=== PATIENT | male | born 1950 | race Caucasian/White ===

== ENCOUNTER 2019-07-06 05:03 | Inpatient (IN) ==
--- NOTE | 2019-06-28 11:20 | XRay Report ---
CLINICAL INFORMATION: Pre-Op COMPARISON: None FINDINGS: Heart size, mediastinum and pulmonary vessels are normal. There is a 2.2 cm calcified granuloma in the anterior segment left upper lobe and minimal scattered scarring in both mid and lower lungs. There are no infiltrates or effusions. Bones and soft tissues normal. IMPRESSION: 2.2 cm calcified granuloma left upper lobe. No acute disease Interpreted and Authenticated by: Maikel Dey 06/28/19
[2019-06-28 14:17] LABS: ALT/SGPT 13 U/l (0-40); AST/SGOT 15 U/l (0-37); Albumin 3.9 gm/dL (3.2-5.2); Albumin/Globulin Ratio 1.3 (1.0-2.3); Alkaline Phosphatase 61 U/L (39-117); Bilirubin,Total 0.3 mg/dL (0.0-1.0); Blood Urea Nitrogen 13 mg/dl (8-23); Carbon Dioxide 22 mmol/L (22-30); Chloride 104 mmol/L (96-108); Glomerular Filtration Rate 44; Glucose 99 mg/dL (70-105)
[2019-06-28 14:17] LABS: Basophils # (Auto) 0.12 K/mcL (0.00-0.30); Basophils % (Auto) 1.3 % (0.0-2.0); Eosinophils # (Auto) 0.25 K/mcL (0.00-0.70); Eosinophils % (Auto) 2.6 % (0.0-7.0); Granulocytes % (Auto) 57.3 % (38.0-78.0); Hematocrit 45.3 % (40.1-51.0); Hemoglobin 14.8 g/dL (13.7-17.5); Lymphocytes # (Auto) 3.12 K/mcL (1.50-4.80); Lymphocytes % (Auto) 32.8 % (15.5-49.0); Mean Cell Volume 96.6 fL (80.0-100.0); Mean Corpuscular HGB Conc 32.7 g/dL (31.0-36.0); Mean Platelet Volume 10.7 fL (7.4-10.4); Monocytes # (Auto) 0.57 K/mcL (0.10-0.90); Platelet Count 218 K/mcL (140-440); RBC 4.69 M/mcL (4.63-6.08); Red Cell Distribution Width 12.7 % (11.5-14.5); WBC 9.5 K/mcL (4.50-11.00)
[~2019-07-06 05:03] MED LIST: IPRATROPIUM/ALBUTEROL 3 ML AMPUL.NEB NEB PRN; SCOPOLAMINE 1 PATCH PATCH TOPICAL PRN
[2019-07-06] MEDS ORDERED: CEFEPIME 2 GM VIAL IV SCH ×2 (06:00→12:25)
[2019-07-06] MEDS ORDERED: VANCOMYCIN 2,000 MG in 0.9 % SODIUM CHLORIDE 500 ML IV SCH ×2 (06:00→12:25)
[2019-07-06 06:33] LABS: INR 0.9 (0.9-1.1)
[2019-07-06] MEDS ORDERED: MIDAZOLAM 2 MG/2 ML VIAL IV ONE (07:36)
[2019-07-06] MEDS ORDERED: ROCURONIUM 10 MG/ML ML IV ONE (07:36)
[2019-07-06] MEDS ORDERED: ONDANSETRON 4 MG/2 ML VIAL IV ONE (07:36)
[2019-07-06] MEDS ORDERED: DEXAMETHASONE 10 MG/ML VIAL IV ONE (07:36)
[2019-07-06] MEDS ORDERED: SUGAMMADEX SODIUM 200 MG/2 ML VIAL IV ONE (07:36)
[2019-07-06] MEDS ORDERED: KETAMINE 100 MG/ML ML IV ONE (07:36)
[2019-07-06] MEDS ORDERED: GLYCOPYRROLATE 0.2 MG/ML VIAL IV ONE (07:36)
[2019-07-06] MEDS ORDERED: PROPOFOL 200 MG/20 ML VIAL IV ONE (07:36)
[2019-07-06] MEDS ORDERED: fentaNYL 100 MCG/2 ML VIAL IV ONE (07:36)
[2019-07-06] MEDS ORDERED: LIDOCAINE HCL/PF 100 MG/5 ML SYRINGE IV ONE (07:36)
[2019-07-06] MEDS ORDERED: ROPIVACAINE HCL/PF 30 ML VIAL IJ ONE (07:36)
[2019-07-06] MEDS ORDERED: BACITRACIN 50,000 UNIT VIAL IR ONE (08:34)
[2019-07-06] MEDS ORDERED: ONDANSETRON 4 MG/2 ML VIAL IV PRN ×3 (09:24→12:25)
[2019-07-06] MEDS ORDERED: ACETAMINOPHEN 1,000 MG/100 ML BOTTLE IV ONE (09:24)
[2019-07-06] MEDS ORDERED: MEPERIDINE 25 MG/ML SYRINGE IV PRN ×3 (09:24→12:25)
[2019-07-06] MEDS ORDERED: KETOROLAC 15 MG/ML VIAL IV PRN ×3 (09:24→12:25)
[2019-07-06] MEDS ORDERED: fentaNYL 100 MCG/2 ML VIAL IV PRN ×3 (09:24→12:25)
[2019-07-06] MEDS ORDERED: IPRATROPIUM/ALBUTEROL 3 ML AMPUL.NEB NEB PRN ×3 (09:24→12:25)
[2019-07-06] MEDS ORDERED: LACTATED RINGERS 1,000 ML IV SCH ×3 (09:30→12:25)
--- NOTE | 2019-07-06 11:27 | Brief Operative Note ---
Date of procedure: 07/06/19 Pre-op diagnosis: LEFT SPIGELIAN HERNIA Post-op diagnosis: other (RECURRENT INCISIONAL HERNIA ;SP MESH GRAFT REPAIR) Procedure: REPAIR OF RECURRENT INCISIONAL HERNIA WITH MESH Grafts/Implants: No (MESH GRAFT) Anesthesia: GETA Findings: HERNIA RECURRENCE DUE TO SEPARATION OF MESH AT LEFT LATERAL AND INFERIOR MARGINS Complications: none Surgeon: Mayte Guerra Estimated blood loss (cc): 50 Specimens Removed/Pathology: none sent Condition: stable Disposition: PACU
[2019-07-06] MEDS ORDERED: ONDANSETRON 4 MG ODT TABLET SL PRN (12:25)
[2019-07-06] MEDS: HYDROmorphone 1 MG/ML SYRINGE IV PRN ×3 (13:01→21:34)
[2019-07-06] MEDS: 0.9 % SODIUM CHLORIDE 1,000 ML IV SCH (13:01)
[2019-07-06] MEDS ORDERED: VANCOMYCIN PER PHARMACY IV SCH (13:30)
[2019-07-06] MEDS: IPRATROPIUM/ALBUTEROL 3 ML AMPUL.NEB NEB SCH ×2 (13:34→19:22)
[2019-07-06] MEDS: CEFEPIME 2 GM VIAL IV SCH ×2 (14:48→21:33)
[2019-07-06] MEDS: 0.9 % SODIUM CHLORIDE 10 ML SYRINGE IV SCH ×2 (14:48→21:23)
[2019-07-06] MEDS ORDERED: VANCOMYCIN 1,500 MG in 0.9 % SODIUM CHLORIDE 500 ML IV SCH (21:00)
[2019-07-06] MEDS: GABAPENTIN 300 MG CAPSULE PO SCH (21:21)
[2019-07-06] MEDS: risperiDONE 1 MG TABLET PO SCH (21:21)
[2019-07-06] MEDS: buPROPion 100 MG TAB.SR.12H PO SCH (21:21)
[2019-07-06] MEDS: VANCOMYCIN 1,500 MG in 0.9 % SODIUM CHLORIDE 500 ML IV SCH (21:35)
[2019-07-07] MEDS: IPRATROPIUM/ALBUTEROL 3 ML AMPUL.NEB NEB SCH ×4 (00:51→19:02)
[2019-07-07] MEDS: HYDROmorphone 1 MG/ML SYRINGE IV PRN ×4 (03:58→21:10)
[2019-07-07] MEDS: CEFEPIME 2 GM VIAL IV SCH ×3 (05:49→22:27)
[2019-07-07] MEDS: 0.9 % SODIUM CHLORIDE 10 ML SYRINGE IV SCH ×3 (05:49→20:58)
[2019-07-07] MEDS: buPROPion 100 MG TAB.SR.12H PO SCH ×2 (08:22→20:58)
[2019-07-07] MEDS: GABAPENTIN 300 MG CAPSULE PO SCH ×2 (08:22→20:58)
[2019-07-07] MEDS: METOPROLOL SUCCINATE 50 MG TAB.XL.24H PO SCH (08:22)
[2019-07-07] MEDS: TAMSULOSIN 0.4 MG CAPSULE PO SCH (08:22)
[2019-07-07] MEDS: 0.9 % SODIUM CHLORIDE 1,000 ML IV SCH (09:35)
[2019-07-07 10:41] LABS: POC Blood Urea Nitrogen 18 mg/dl (8-23); POC CO2 26 mmol/L (22-30); POC Calcium, Ionized 1.08 mmol/L (1.16-1.32); POC Chloride 102 mmol/L (96-108); POC Creatinine 1.7 mg/dl (0.7-1.2); POC Glucose, Random 105 mg/dL (70-105); POC Potassium 4.3 mmol/L (3.3-5.1); POC Sodium 138 mmol/L (133-145)
[2019-07-07] MEDS: VANCOMYCIN 1,500 MG in 0.9 % SODIUM CHLORIDE 500 ML IV SCH ×2 (10:53→21:03)
--- NOTE | 2019-07-07 14:28 | Operative Note ---
DATE OF OPERATION: 07/06/2019 PREOPERATIVE DIAGNOSIS: Left spigelian hernia. POSTOPERATIVE DIAGNOSIS: Recurrent incisional hernia due to failed mesh repair. PROCEDURE: Repair of recurrent incisional hernia with mesh. SURGEON: Mayte Guerra M.D. FINDINGS: Hernia recurrence due to separation of mesh at left lateral margin and inferior margin at the level of the umbilicus. DESCRIPTION OF PROCEDURE: Under general anesthesia, the patient's abdomen was prepped and draped in a sterile field. Review of the CT of the hernia revealed that though it appeared to exit through the abdominal wall laterally along the lower semilunar line on the left, that the actual exit was more superior and more lateral. There was also herniation at the level of the umbilicus. It was, therefore, decided that the hernia would be assessed through a midline approach. A midline incision was made. In the subcutaneous tissue, there was scarring which suggested that he had had previous surgery. After I got through the subcutaneous tissue, I encountered a very large mesh that appeared to cover the entire anterior and lateral aspect of the peritoneum. Using blunt dissection, I was able to separate the thin fascia from the mesh circumferentially. On the left side, there was a total separation of the mesh, and there was herniation of bowel and mesentery and omentum into a fascial defect that tracked inferior and superiorly. This left a very large defect and hernia sac. I dissected until I could find the margin of the mesh, and then after the scar tissue was incised, the large defect was circumferentially dissected. The bowel was pulled from the large hernia sac and reduced back into the peritoneal cavity. The lower aspect of the mesh was inspected, and it had from its lower fascial margin. It was dissected along the entire inferior border until the attachments could be clearly identified. The mesh was then split along the lower one-fourth so that I could make sure that the suture that I was going to place to reattach it would not injure any bowel. There were two loops of bowel stuck to the mesh, and this was removed by sharp dissection and blunt dissection. Once the bowel was freed, I was then able to suture the mesh to the fascia and rectus muscle [id number] with the suture being tied after I was assured that the entire defect had been incorporated. No bowel was injured during this procedure. I then placed a drain in the large defect in the left lower quadrant. This was brought out inferiorly so that the drain would adequately decompress the entire defect. The muscle and fascia was then closed [id number] using #1 Prolene. This affected a good repair on that side. The mesh was then sutured to the muscle and fascia to secure it, taking care to visualize the entire undersurface of the mesh prior to tying the suture. Once this was completed, irrigation was carried out. Two drains were placed over the mesh and brought out through stab incisions in the right lower quadrant. The muscle and fascia were closed in the midline using running #1 Prolene. Irrigation was carried out with bacitracin solution, and the subcutaneous fat was closed with 2-0 Monocryl. Skin was closed with zoltan. The patient tolerated the procedure well. Dressings were placed, and the drains were secured with 2-0 nylon. He was awakened, transferred to the bed, and taken to the postanesthetic care unit in satisfactory condition. LCS:emerson Job ID: [id number] Doc ID: [id number] Mayte Guerra M.D.
--- NOTE | 2019-07-07 14:50 | General Surgery Progress Note ---
Subjective Patient reports: feels better, still having pain, pain is less, tolerating liquids well, flatus, no bowel movement, afebrile Narrative: Note initiated : 07/07/19 at 2:48 pm Service Date, if different from initiated Date: [] Patient: Michael Grant 68 y/o M admitted on 07/06/19 for Left Spigelian Hernia Repair. Chief Complaint: [patient states that he feels better. His abdominal pain is controlled. He denies nausea. He is tolerating liquids without difficulty. He has had some flatus but no bowel movement. RICHIE drains are putting out bloody drainage so far but small quantities. His incision is unremarkable.] Objective Temp Pulse Resp BP Pulse Ox 98.7 F 76 16 115/67 90 07/07/19 12:00 07/07/19 13:20 07/07/19 13:20 07/07/19 12:00 07/07/19 13:20 - Additional Data Intake & Output - Last 24 hours: Intake & Output 07/05/19 07/06/19 07/07/19 07/08/19 05:59 05:59 05:59 05:59 Intake Total 6320 1800 Output Total 4307 2600 Balance 2013 -800 Weight 289 lb 8 oz 296 lb 296 lb - General physical appearance well developed, well nourished, no distress - Eyes PERRL, normal ocular movement - ENT normal pinna, normal nares, normal mucosa, no hearing loss, no congestion - Neck no masses, no bruits, trachea midline, no lymphadenopathy, no venous distension - Respiratory normal expansion, normal respiratory effort, clear to auscultation - Cardiovascular Cardiovascular exam: Present: normal rate and rhythm, RRR, +S1, +S2. Absent: JVD, tachycardia - Abdomen non tender, tender (mild incisional tenderness), bowel sounds (present), surgical scars (none), masses (none) - Integumentary no rash, no growths, no abnormal pigmentation - Neurologic normal coordination, normal sensation - Musculoskeletal normal gait, normal posture - Psychiatric oriented to time, oriented to person, oriented to place, speech is normal, memory intact - Labs 06/28/19 10:54 06/28/19 10:53 Assessment and Plan (1) Recurrent incisional hernia Status: Acute Assessment and plan: Patient is stable. Will try to advance diet to full liquids Encourage improved ambulation with physical therapy Current Visit: Yes - Time Spent With Patient Total time spent is greater than 50% in coordination of care (as documented) at patient's floor/unit and/or counseling patient:
[2019-07-07] MEDS: risperiDONE 1 MG TABLET PO SCH (20:58)
[2019-07-07] MEDS: NICOTINE 21 MG PATCH TOPICAL SCH (21:04)
[2019-07-08] MEDS: HYDROmorphone 1 MG/ML SYRINGE IV PRN ×5 (00:34→22:15)
[2019-07-08] MEDS: IPRATROPIUM/ALBUTEROL 3 ML AMPUL.NEB NEB SCH ×4 (00:34→18:34)
[2019-07-08] MEDS: 0.9 % SODIUM CHLORIDE 10 ML SYRINGE IV SCH ×3 (04:15→20:47)
[2019-07-08] MEDS: CEFEPIME 2 GM VIAL IV SCH ×3 (05:59→22:16)
[2019-07-08] MEDS: METOPROLOL SUCCINATE 50 MG TAB.XL.24H PO SCH (08:59)
[2019-07-08] MEDS: GABAPENTIN 300 MG CAPSULE PO SCH ×2 (08:59→20:50)
[2019-07-08] MEDS: buPROPion 100 MG TAB.SR.12H PO SCH ×2 (08:59→20:50)
[2019-07-08] MEDS: TAMSULOSIN 0.4 MG CAPSULE PO SCH (08:59)
[2019-07-08 09:05] LABS: Basophils # (Auto) 0.09 K/mcL (0.00-0.30); Basophils % (Auto) 0.9 % (0.0-2.0); Eosinophils # (Auto) 0.33 K/mcL (0.00-0.70); Eosinophils % (Auto) 3.1 % (0.0-7.0); Hematocrit 43.3 % (40.1-51.0); Hemoglobin 13.9 g/dL (13.7-17.5); Lymphocytes # (Auto) 1.66 K/mcL (1.50-4.80); Lymphocytes % (Auto) 15.7 % (15.5-49.0); Mean Cell Volume 99.3 fL (80.0-100.0); Mean Corpuscular HGB Conc 32.1 g/dL (31.0-36.0); Mean Platelet Volume 10.5 fL (7.4-10.4); Monocytes # (Auto) 0.77 K/mcL (0.10-0.90); Monocytes % (Auto) 7.3 % (1.0-12.0); Platelet Count 202 K/mcL (140-440); RBC 4.36 M/mcL (4.63-6.08); Red Cell Distribution Width 12.8 % (11.5-14.5); WBC 10.6 K/mcL (4.50-11.00)
[2019-07-08 09:23] LABS: ALT/SGPT 13 U/l (0-40); AST/SGOT 14 U/l (0-37); Albumin 3.6 gm/dL (3.2-5.2); Albumin/Globulin Ratio 1.2 (1.0-2.3); Alkaline Phosphatase 55 U/L (39-117); Bilirubin,Direct 0.2 mg/dL (0.0-0.3); Bilirubin,Total 0.7 mg/dL (0.0-1.0); Blood Urea Nitrogen 12 mg/dl (8-23); Calcium 8.8 mg/dl (8.6-10.4); Carbon Dioxide 26 mmol/L (22-30); Chloride 103 mmol/L (96-108); Globulin 2.9 gm/dL (2.2-3.7); Glomerular Filtration Rate 52; Glucose 106 mg/dL (70-105); Lactate Dehydrogenase 204 U/L (94-250); Triglycerides 163 mg/dl (<150); Uric Acid 6.4 mg/dL (2.5-8.0)
[2019-07-08 09:24] LABS: Phosphorous 2.3 mg/dL (2.7-4.5)
--- NOTE | 2019-07-08 10:31 | General Surgery Progress Note ---
Subjective Patient reports: feels better, pain is less, tolerating liquids well, no flatus, no bowel movement, afebrile Narrative: Note initiated : 07/08/19 at 10:29 am Service Date, if different from initiated Date: [] Patient: Michael Grant 68 y/o M admitted on 07/06/19 for Left Spigelian Hernia Repair. Chief Complaint: [patient is stable. He is tolerating clear liquids and does not have nausea however he has had flatus . He is afebrile. He does have increased abdominal distention. White blood count 10.6, hemoglobin 13.9, hematocrit 30, creatinine 1.4 phosphorus 2.3] Objective Temp Pulse Resp BP Pulse Ox 97.7 F 100 H 18 128/79 94 07/08/19 07:40 07/08/19 07:40 07/08/19 07:40 07/08/19 07:40 07/08/19 07:40 - Additional Data Intake & Output - Last 24 hours: Intake & Output 07/06/19 07/07/19 07/08/19 07/09/19 05:59 05:59 05:59 05:59 Intake Total 6320 4150 Output Total 4307 56097 800 Balance 2013 -5955 -800 Weight 289 lb 8 oz 296 lb 301 lb 8 oz - General physical appearance well developed, well nourished, no distress, moderate pain - Eyes PERRL, normal ocular movement - ENT normal pinna, normal nares, normal mucosa, no hearing loss, no congestion - Neck no masses, no bruits, trachea midline, no lymphadenopathy, no venous distension - Respiratory normal expansion, normal respiratory effort, clear to auscultation - Cardiovascular Cardiovascular exam: Present: normal rate and rhythm, RRR, +S1, +S2. Absent: J VD, tachycardia - Abdomen distended (moderately distended but with good active bowel sounds; incision looks good; RICHIE drain with serosanguineous drainage) - Integumentary no rash, no growths, no abnormal pigmentation - Neurologic normal coordination, normal sensation - Musculoskeletal normal gait, normal posture - Psychiatric oriented to time, oriented to person, oriented to place, speech is normal, memory intact - Labs 07/08/19 08:09 07/08/19 08:09 Diabetes panel 07/08/19 Range/Units 08:09 Sodium 143 (133-145) mmol/L Potassium 4.3 (3.3-5.1) mmol/L Chloride 103 (96-108) mmol/L Carbon Dioxide 26 (22-30) mmol/L BUN 12 (8-23) mg/dl Creatinine 1.4 H (0.7-1.2) mg/dl Glucose 106 H (70-105) mg/dL Calcium 8.8 (8.6-10.4) mg/dl AST 14 (0-37) U/l ALT 13 (0-40) U/l Alkaline Phosphatase 55 (39-117) U/L Total Protein 6.5 (5.9-8.4) gm/dL Albumin 3.6 (3.2-5.2) gm/dL Triglycerides 163 H (<150) mg/dl Calcium panel 07/08/19 Range/Units 08:09 Calcium 8.8 (8.6-10.4) mg/dl Phosphorus 2.3 L (2.7-4.5) mg/dL Albumin 3.6 (3.2-5.2) gm/dL Pituitary panel 07/08/19 Range/Units 08:09 Sodium 143 (133-145) mmol/L Potassium 4.3 (3.3-5.1) mmol/L Chloride 103 (96-108) mmol/L Carbon Dioxide 26 (22-30) mmol/L BUN 12 (8-23) mg/dl Creatinine 1.4 H (0.7-1.2) mg/dl Glucose 106 H (70-105) mg/dL Calcium 8.8 (8.6-10.4) mg/dl Adrenal panel 07/08/19 Range/Units 08:09 Sodium 143 (133-145) mmol/L Potassium 4.3 (3.3-5.1) mmol/L Chloride 103 (96-108) mmol/L Carbon Dioxide 26 (22-30) mmol/L BUN 12 (8-23) mg/dl Creatinine 1.4 H (0.7-1.2) mg/dl Glucose 106 H (70-105) mg/dL Calcium 8.8 (8.6-10.4) mg/dl Total Bilirubin 0.7 (0.0-1.0) mg/dL AST 14 (0-37) U/l ALT 13 (0-40) U/l Alkaline Phosphatase 55 (39-117) U/L Total Protein 6.5 (5.9-8.4) gm/dL Albumin 3.6 (3.2-5.2) gm/dL Assessment and Plan (1) Recurrent incisional hernia Status: Acute Assessment and plan: Patient is stable. Will try to advance diet to full liquids Encourage improved ambulation with physical therapy Reglan 10 mg IV every 6 hours Abdominal x-rays in the morning Current Visit: Yes - Time Spent With Patient Total time spent is greater than 50% in coordination of care (as documented) at patient's floor/unit and/or counseling patient:
[2019-07-08] MEDS: NICOTINE 21 MG PATCH TOPICAL SCH (10:43)
[2019-07-08] MEDS: 0.9 % SODIUM CHLORIDE 1,000 ML IV SCH (11:23)
[2019-07-08] MEDS: METOCLOPRAMIDE 10 MG/2 ML VIAL IV SCH ×3 (11:27→23:22)
[2019-07-08] MEDS: VANCOMYCIN 1,500 MG in 0.9 % SODIUM CHLORIDE 500 ML IV SCH (14:05)
[2019-07-08] MEDS: risperiDONE 1 MG TABLET PO SCH (20:50)
[2019-07-09] MEDS: HYDROmorphone 1 MG/ML SYRINGE IV PRN ×3 (02:04→13:50)
[2019-07-09] MEDS: IPRATROPIUM/ALBUTEROL 3 ML AMPUL.NEB NEB SCH ×4 (02:06→18:48)
[2019-07-09] MEDS: 0.9 % SODIUM CHLORIDE 1,000 ML IV SCH (02:29)
[2019-07-09] MEDS: CEFEPIME 2 GM VIAL IV SCH ×2 (05:57→13:50)
[2019-07-09] MEDS: 0.9 % SODIUM CHLORIDE 10 ML SYRINGE IV SCH ×2 (05:57→13:51)
[2019-07-09] MEDS: METOCLOPRAMIDE 10 MG/2 ML VIAL IV SCH ×3 (05:57→18:11)
[2019-07-09 06:30] LABS: Basophils # (Auto) 0.08 K/mcL (0.00-0.30); Basophils % (Auto) 0.9 % (0.0-2.0); Eosinophils # (Auto) 0.39 K/mcL (0.00-0.70); Eosinophils % (Auto) 4.3 % (0.0-7.0); Granulocytes % (Auto) 69.4 % (38.0-78.0); Hemoglobin 12.7 g/dL (13.7-17.5); Lymphocytes # (Auto) 1.65 K/mcL (1.50-4.80); Lymphocytes % (Auto) 18.1 % (15.5-49.0); Mean Corpuscular HGB Conc 32.6 g/dL (31.0-36.0); Mean Platelet Volume 10.4 fL (7.4-10.4); Monocytes # (Auto) 0.67 K/mcL (0.10-0.90); Monocytes % (Auto) 7.3 % (1.0-12.0); Platelet Count 195 K/mcL (140-440); RBC 3.94 M/mcL (4.63-6.08); Red Cell Distribution Width 12.6 % (11.5-14.5); WBC 9.1 K/mcL (4.50-11.00)
[2019-07-09 06:51] LABS: Chloride 103 mmol/L (96-108)
[2019-07-09 06:53] LABS: ALT/SGPT 13 U/l (0-40); AST/SGOT 14 U/l (0-37); Albumin 3.1 gm/dL (3.2-5.2); Alkaline Phosphatase 55 U/L (39-117); Bilirubin,Direct 0.2 mg/dL (0.0-0.3); Bilirubin,Total 0.7 mg/dL (0.0-1.0); Blood Urea Nitrogen 11 mg/dl (8-23); Calcium 8.8 mg/dl (8.6-10.4); Carbon Dioxide 26 mmol/L (22-30); Globulin 3.2 gm/dL (2.2-3.7); Glomerular Filtration Rate 52; Glucose 96 mg/dL (70-105); Lactate Dehydrogenase 230 U/L (94-250); Phosphorous 2.3 mg/dL (2.7-4.5); Triglycerides 138 mg/dl (<150); Uric Acid 6.3 mg/dL (2.5-8.0); Vancomycin,Random 11.5 ug/mL
--- NOTE | 2019-07-09 08:55 | XRay Report ---
CLINICAL INFORMATION: Abdominal pain. History of Spigelian hernia repair COMPARISON: Preoperative abdomen and pelvic CT 06/28/2019. FINDINGS: Scattered air fluid levels within nondilated stomach, small and large bowel compatible with postoperative ileus. No free air or abnormal soft tissue mass. Multiple surgical drains overlie the hernia repair site the left mid abdomen. Left diaphragm is mildly elevated. IMPRESSION: Mild ileus Mild left diaphragm elevation - new finding. Interpreted and Authenticated by: Maikel Dey 07/09/19
[2019-07-09] MEDS ORDERED: VANCOMYCIN 1,500 MG in 0.9 % SODIUM CHLORIDE 500 ML IV SCH (09:00)
[2019-07-09] MEDS: TAMSULOSIN 0.4 MG CAPSULE PO SCH (09:07)
[2019-07-09] MEDS: GABAPENTIN 300 MG CAPSULE PO SCH ×2 (09:07→20:40)
[2019-07-09] MEDS: METOPROLOL SUCCINATE 50 MG TAB.XL.24H PO SCH (09:07)
[2019-07-09] MEDS: buPROPion 100 MG TAB.SR.12H PO SCH ×2 (09:07→20:40)
[2019-07-09] MEDS: NICOTINE 21 MG PATCH TOPICAL SCH (09:08)
--- NOTE | 2019-07-09 11:11 | General Surgery Progress Note ---
Subjective Patient reports: feels better, still having pain, pain is less, flatus, no bowel movement, afebrile Narrative: Note initiated : 07/09/19 at 11:09 am Service Date, if different from initiated Date: [] Patient: Michael Grant 68 y/o M admitted on 07/06/19 for Left Spigelian Hernia Repair. Chief Complaint: [patient continues to improve. He has better control of this pain. He has had flatus and denies nausea. RICHIE drainage is more serous. White count 9.1, hemoglobin 12.7, hematocrit 39, creatinine 1.4, phosphorus 2.3, potassium 4..abdominal exam shows dilated colon and small bowel with most of the gas in colon.] Objective Temp Pulse Resp BP Pulse Ox 97.0 F 108 H 20 113/75 94 07/09/19 08:00 07/09/19 08:00 07/09/19 08:00 07/09/19 08:00 07/09/19 08:00 - Additional Data Intake & Output - Last 24 hours: Intake & Output 07/07/19 07/08/19 07/09/19 07/10/19 05:59 05:59 05:59 05:59 Intake Total 6320 5150 3200 480 Output Total 4307 96109 5453 Balance 9728 -7503 -6993 480 Weight 296 lb 301 lb 8 oz 291 lb 8 oz - General physical appearance well developed, well nourished, no distress, moderate pain - Eyes PERRL, normal ocular movement - ENT normal pinna, normal nares, normal mucosa, no hearing loss, no congestion - Neck no masses, no bruits, trachea midline, no lymphadenopathy, no venous distension - Respiratory normal expansion, normal respiratory effort, clear to auscultation - Cardiovascular Cardiovascular exam: Present: normal rate and rhythm, RRR, +S1, +S2. Absent: JVD, tachycardia - Abdomen tender (mild incisional tenderness), bowel sounds (present), surgical scars (none), masses (none), distended ( moderate abdominal distention but softer than on yesterday) - Integumentary no rash, no growths, no abnormal pigmentation - Neurologic normal coordination, normal sensation - Musculoskeletal normal gait, normal posture - Psychiatric oriented to time, oriented to person, oriented to place, speech is normal, memory intact - Labs 07/09/19 05:10 07/09/19 05:10 Diabetes panel 07/09/19 Range/Units 05:10 Sodium 140 (133-145) mmol/L Potassium 4.0 (3.3-5.1) mmol/L Chloride 103 (96-108) mmol/L Carbon Dioxide 26 (22-30) mmol/L BUN 11 (8-23) mg/dl Creatinine 1.4 H (0.7-1.2) mg/dl Glucose 96 (70-105) mg/dL Calcium 8.8 (8.6-10.4) mg/dl AST 14 (0-37) U/l ALT 13 (0-40) U/l Alkaline Phosphatase 55 (39-117) U/L Total Protein 6.3 (5.9-8.4) gm/dL Albumin 3.1 L (3.2-5.2) gm/dL Triglycerides 138 (<150) mg/dl Calcium panel 07/09/19 Range/Units 05:10 Calcium 8.8 (8.6-10.4) mg/dl Phosphorus 2.3 L (2.7-4.5) mg/dL Albumin 3.1 L (3.2-5.2) gm/dL Pituitary panel 07/09/19 Range/Units 05:10 Sodium 140 (133-145) mmol/L Potassium 4.0 (3.3-5.1) mmol/L Chloride 103 (96-108) mmol/L Carbon Dioxide 26 (22-30) mmol/L BUN 11 (8-23) mg/dl Creatinine 1.4 H (0.7-1.2) mg/dl Glucose 96 (70-105) mg/dL Calcium 8.8 (8.6-10.4) mg/dl Adrenal panel 07/09/19 Range/Units 05:10 Sodium 140 (133-145) mmol/L Potassium 4.0 (3.3-5.1) mmol/L Chloride 103 (96-108) mmol/L Carbon Dioxide 26 (22-30) mmol/L BUN 11 (8-23) mg/dl Creatinine 1.4 H (0.7-1.2) mg/dl Glucose 96 (70-105) mg/dL Calcium 8.8 (8.6-10.4) mg/dl Total Bilirubin 0.7 (0.0-1.0) mg/dL AST 14 (0-37) U/l ALT 13 (0-40) U/l Alkaline Phosphatase 55 (39-117) U/L Total Protein 6.3 (5.9-8.4) gm/dL Albumin 3.1 L (3.2-5.2) gm/dL Assessment and Plan (1) Recurrent incisional hernia Status: Acute Assessment and plan: Patient is stable. Will try to advance diet to full liquids Encourage improved ambulation Saline lock IV Discontinue Noyola catheter Milk of magnesia 3 doses Replace potassium phosphate Current Visit: Yes - Time Spent With Patient Total time spent is greater than 50% in coordination of care (as documented) at patient's floor/unit and/or counseling patient:
[2019-07-09] MEDS: MAGNESIUM HYDROXIDE 30 ML ORAL.SUSP PO SCH ×3 (11:47→16:21)
[2019-07-09] MEDS ORDERED: POTASSIUM PHOSPHATE 40 MEQ in DEXTROSE 5% IN WATER 500 ML IV ONE (12:00)
[2019-07-09] MEDS ORDERED: oxyCODONE HCL 5 MG TABLET PO PRN (18:50)
[2019-07-09] MEDS: METOCLOPRAMIDE 10 MG TABLET PO SCH (19:07)
[2019-07-09] MEDS: risperiDONE 1 MG TABLET PO SCH (20:40)
[2019-07-10] MEDS: METOCLOPRAMIDE 10 MG TABLET PO SCH ×3 (00:14→12:19)
[2019-07-10] MEDS: IPRATROPIUM/ALBUTEROL 3 ML AMPUL.NEB NEB SCH ×3 (00:14→13:12)
[2019-07-10 06:18] LABS: Basophils # (Auto) 0.06 K/mcL (0.00-0.30); Basophils % (Auto) 0.7 % (0.0-2.0); Eosinophils # (Auto) 0.38 K/mcL (0.00-0.70); Eosinophils % (Auto) 4.6 % (0.0-7.0); Granulocytes % (Auto) 70.1 % (38.0-78.0); Hematocrit 38.3 % (40.1-51.0); Hemoglobin 12.5 g/dL (13.7-17.5); Lymphocytes # (Auto) 1.29 K/mcL (1.50-4.80); Lymphocytes % (Auto) 15.7 % (15.5-49.0); Mean Cell Volume 98.2 fL (80.0-100.0); Mean Corpuscular HGB Conc 32.6 g/dL (31.0-36.0); Monocytes # (Auto) 0.73 K/mcL (0.10-0.90); Monocytes % (Auto) 8.9 % (1.0-12.0); Red Cell Distribution Width 12.8 % (11.5-14.5); WBC 8.2 K/mcL (4.50-11.00)
[2019-07-10 06:22] LABS: Platelet Count 274 K/mcL (140-440)
[2019-07-10 06:27] LABS: Chloride 106 mmol/L (96-108)
[2019-07-10 06:28] LABS: ALT/SGPT 18 U/l (0-40); AST/SGOT 21 U/l (0-37); Albumin/Globulin Ratio 0.9 (1.0-2.3); Alkaline Phosphatase 55 U/L (39-117); Bilirubin,Direct < 0.2 mg/dL (0.0-0.3); Bilirubin,Total 0.5 mg/dL (0.0-1.0); Blood Urea Nitrogen 9 mg/dl (8-23); Calcium 8.7 mg/dl (8.6-10.4); Carbon Dioxide 25 mmol/L (22-30); Globulin 3.2 gm/dL (2.2-3.7); Glomerular Filtration Rate 52; Glucose 108 mg/dL (70-105); Lactate Dehydrogenase 302 U/L (94-250); Phosphorous 2.6 mg/dL (2.7-4.5); Triglycerides 146 mg/dl (<150); Uric Acid 6.2 mg/dL (2.5-8.0)
[2019-07-10] MEDS: buPROPion 100 MG TAB.SR.12H PO SCH (08:44)
[2019-07-10] MEDS: METOPROLOL SUCCINATE 50 MG TAB.XL.24H PO SCH (08:45)
[2019-07-10] MEDS: NICOTINE 21 MG PATCH TOPICAL SCH (08:45)
[2019-07-10] MEDS: TAMSULOSIN 0.4 MG CAPSULE PO SCH (08:45)
[2019-07-10] MEDS: GABAPENTIN 300 MG CAPSULE PO SCH (08:45)
--- NOTE | 2019-07-10 12:09 | Discharge Summary ---
Providers - Providers Patient information: Note initiated : 07/10/19 at 12:08 pm Service Date, if different from initiated Date: [] Patient: Michael Grant 68 y/o M admitted on 07/06/19 for Left Spigelian Hernia Repair. Chief Complaint: [] Date of admission: 07/06/19 Discharge date: 07/10/19 Attending physician: Mayte Guerra Primary care physician: Bebe Cardenas[facility] Hospital Course: 68-year-old male admitted on 06 Jul 2019 after repair of 2 large incisional hernias. The hernias are recurrent after previous mesh repair many years ago. There was a large amount of bowel entrapped in a hernia in the left lower quadrant. Both defects were repaired primarily in the old mesh was reattached. The patient had moderate ileus in the postoperative period due to extensive dissection. He is doing well now and has no complaints. He is having regular bowel movements. He is afebrile. His white blood count is 8.2, hemoglobin 12.5, hematocrit 38.3, creatinine 1.4, phosphorus 2.6. His drains will be left in place and he will be followed up in the office in 2 weeks. 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 Reason for admission: postoperative repair of recurrent incisional hernia Procedures: Repair of recurrent incisional hernia 2 Complications: 9 Exam Temp Pulse Resp BP Pulse Ox 98.1 F 100 H 20 134/81 92 07/10/19 12:00 07/10/19 12:00 07/10/19 12:00 07/10/19 12:00 07/10/19 12:00 - General physical appearance well developed, well nourished, no distress - Eyes PERRL, normal ocular movement - ENT normal pinna, normal nares, normal mucosa, no hearing loss, no congestion - Head Head exam IM: Present: atraumatic, normocephalic - Neck no masses, no bruits, trachea midline, no lymphadenopathy, no venous distension - Cardiovascular Cardiovascular exam IM: Present: normal rate and rhythm - Respiratory normal expansion, normal respiratory effort, clear to percussion, clear to auscultation - Abdomen Abdomen: Present: soft, tender (mild incisional tenderness;), bowel sounds, distended ( moderate abdominal distention with good active bowel sounds; RICHIE drain is serosanguineous) Hernia: Present: none - Genitourinary Present: normal penis with no external lesions - Integumentary Present: no rash, no growths, no abnormal pigmentation - Neurologic Present: normal coordination, normal sensation - Musculoskeletal Present: normal gait, normal posture - Psychiatric Present: oriented to time, oriented to person, oriented to place, speech is normal, memory intact Discharge Plan - Patient/Caregiver Discharge Instructions Activity: increase activity as tolerated Diet: Regular Diet Prescriptions: oxyCODONE HCL [Oxycodone HCl] 10 tab PO Q4HP PRN #40 tab PRN Reason: Pain Level > 6 Transmission Status: Received by [facility] #[id number] - Follow up Plan Follow up with: Mayte Guerra MD [Physician] - 07/21/19 1:00 pm Disposition: Home, Self-Care Prognosis: Good Rehab Potential: Good I certify that the patient requires SNF services.: No Overall status at discharge: patient is progressing back to baseline Pending Studies Resuscitation Status Full Code Diet Full Liquid Diet Start Keerthi July 064 Albuterol/Ipratropium (Duoneb) 3 ml NEB Q6HRT DEANNA Last Admin: 07/10/19 07:20 Dose: 3 ml Documented by: Admin: 07/10/19 00:14 Dose: 3 ml Documented by: Admin: 07/09/19 18:48 Dose: 3 ml Documented by: Admin: 07/09/19 13:12 Dose: 3 ml Documented by: Admin: 07/09/19 07:52 Dose: 3 ml Documented by: Admin: 07/09/19 02:06 Dose: Not Given Documented by: Admin: 07/08/19 18:34 Dose: 3 ml Documented by: Admin: 07/08/19 13:08 Dose: 3 ml Documented by: Admin: 07/08/19 07:09 Dose: 3 ml Documented by: Admin: 07/08/19 00:34 Dose: 3 ml Documented by: Admin: 07/07/19 19:02 Dose: 3 ml Documented by: Admin: 07/07/19 13:18 Dose: 3 ml Documented by: Admin: 07/07/19 07:34 Dose: 3 ml Documented by: Admin: 07/07/19 00:51 Dose: 3 ml Documented by: Admin: 07/06/19 19:22 Dose: 3 ml Documented by: Admin: 07/06/19 13:34 Dose: 3 ml Documented by: BRICE Bupropion HCl (Wellbutrin Sr) 200 mg PO BID [facility] Last Admin: 07/10/19 08:44 Dose: 200 mg Documented by: Admin: 07/09/19 20:40 Dose: 200 mg Documented by: Admin: 07/09/19 09:07 Dose: 200 mg Documented by: Admin: 07/08/19 20:50 Dose: 200 mg Documented by: Admin: 07/08/19 08:59 Dose: 200 mg Documented by: Admin: 07/07/19 20:58 Dose: 200 mg Documented by: Admin: 07/07/19 08:22 Dose: 200 mg Documented by: Admin: 07/06/19 21:21 Dose: 200 mg Documented by: ANAIS Gabapentin (Neurontin) 300 mg PO BID [facility] Last Admin: 07/10/19 08:45 Dose: 300 mg Documented by: Admin: 07/09/19 20:40 Dose: 300 mg Documented by: Admin: 07/09/19 09:07 Dose: 300 mg Documented by: Admin: 07/08/19 20:50 Dose: 300 mg Documented by: Admin: 07/08/19 08:59 Dose: 300 mg Documented by: Admin: 07/07/19 20:58 Dose: 300 mg Documented by: Admin: 07/07/19 08:22 Dose: 300 mg Documented by: Admin: 07/06/19 21:21 Dose: 300 mg Documented by: ANAIS Metoclopramide HCl (Reglan) 10 mg PO Q6H [facility] Last Admin: 07/10/19 07:45 Dose: 10 mg Documented by: Admin: 07/10/19 00:14 Dose: 10 mg Documented by: Admin: 07/09/19 19:07 Dose: 10 mg Documented by: RSAUVE Metoprolol Succinate (Toprol Xl) 50 mg PO QDAY [facility] Last Admin: 07/10/19 08:45 Dose: 50 mg Documented by: Admin: 07/09/19 09:07 Dose: 50 mg Documented by: Admin: 07/08/19 08:59 Dose: 50 mg Documented by: Admin: 07/07/19 08:22 Dose: 50 mg Documented by: JORGE Nicotine (Nicoderm) 21 mg TOPICAL DAILY@1000 [facility] Last Admin: 07/10/19 08:45 Dose: 21 mg Documented by: Admin: 07/09/19 09:08 Dose: 21 mg Documented by: Admin: 07/08/19 10:43 Dose: 21 mg Documented by: Admin: 07/07/19 21:04 Dose: 21 mg Documented by: ANAIS Ondansetron HCl (Zofran Odt) 4 mg SL Q4HP PRN; Protocol PRN Reason: Nausea And Vomiting Last Admin: 07/06/19 15:04 Dose: 4 mg Documented by: LALITA Oxycodone HCl (Roxicodone) 10 mg PO Q4HP PRN; Protocol PRN Reason: Per Pain Protocol Last Admin: 07/10/19 02:48 Dose: 10 mg Documented by: MARYAM Venlafaxine Hcl 100 (Mg Tab) 1 dose PO BID [facility] Last Admin: 07/10/19 08:46 Dose: Not Given Documented by: Admin: 07/09/19 20:41 Dose: Not Given Documented by: Admin: 07/09/19 09:06 Dose: Not Given Documented by: Admin: 07/08/19 20:50 Dose: Not Given Documented by: Admin: 07/08/19 09:32 Dose: Not Given Documented by: Admin: 07/07/19 21:10 Dose: Not Given Documented by: Admin: 07/07/19 09:36 Dose: Not Given Documented by: Admin: 07/06/19 21:22 Dose: Not Given Documented by: ANAIS Risperidone (Risperdal) 2 mg PO QHS [facility] Last Admin: 07/09/19 20:40 Dose: 2 mg Documented by: Admin: 07/08/19 20:50 Dose: 2 mg Documented by: Admin: 07/07/19 20:58 Dose: 2 mg Documented by: Admin: 07/06/19 21:21 Dose: 2 mg Documented by: ANAIS Tamsulosin HCl (Flomax) 0.4 mg PO QDAY [facility]AN[facility] Last Admin: 07/10/19 08:45 Dose: 0.4 mg Documented by: Admin: 07/09/19 09:07 Dose: 0.4 mg Documented by: Admin: 07/08/19 08:59 Dose: 0.4 mg Documented by: Admin: 07/07/19 08:22 Dose: 0.4 mg Documented by: JORGE Shift Summary 07/10/19 04:24 Shift Summary by Ray Cortés Pt has rested fairly well. He is up AMB (I) in Rm, and out in sheppard x1 - gait stable w/ FWW. Voiding QS LG amt's into commode - no BM this shift. Pt had 1x XL incont urine while resting last mary - none since. Midline ABD incision well approximated w/ zoltan in place - covered w/ film dressing. 3x RICHIE to ABD - 3ml, 3ml, 7ml output from RICHIE's. ABD pain has been minimal - Roxicodone 10mg PO given x1 @ 0300. No nausea. No lines - all IV meds changed or D/C'd. VS - WNL on R.A.. Pt wears O2 @ home as needed. He is A&O x4, calm, pleasant, & cooperative. Initialized on 07/10/19 04:24 - END OF NOTE
--- NOTE | 2019-07-10 12:11 | XRay Report ---
CLINICAL INFORMATION: FOLLOW -UP OF SMALL BOWEL OBSTRUCTION COMPARISON: 07/09/2019 FINDINGS: Mild ileus pattern is improved from yesterday's exam. There is still mild dilatation of the small bowel, large bowel and stomach with scattered air-fluid levels. Surgical drains overlie the midabdomen. No free air. Left diaphragm mildly elevated. IMPRESSION: Mild ileus - improved. Interpreted and Authenticated by: Maikel Dey 07/10/19
== END 2019-07-10 14:35 | disposition home or self-care (01) | DRG 354 ==
LOC: MEDSUR 05:03
PROVIDERS: ADMIT Family Medicine Adult Medicine; ATTEND Family Medicine Adult Medicine